=== PATIENT | female | born 1990 | race African-American/Black ===

== ENCOUNTER 2016-10-27 06:55 | Outpatient (CLI) | payer OTHER, SELFPAY ==
[~2016-10-27] VITALS: Ht 149.9 cm; Wt 58.0 kg
[2016-10-27 07:33] VITALS: BP 133/65
[2016-10-27 08:57] VITALS: BP 114/58
[2016-10-27 09:28] LABS: MEAN CORPUSCULAR HGB CONC 32.1 g/dl (32.0-36.5); MEAN CORPUSCULAR VOLUME 77.8 fl (80.0-96.0); RED CELL DISTRIBUTION WIDTH 14.3 % (11.5-14.5); WHITE BLOOD COUNT 9.7 K/mm3 (4.0-10.0)
[2016-10-27 09:56] LABS: ALBUMIN 3.2 GM/DL (3.2-5.2); ALBUMIN/GLOBULIN RATIO 0.82 (1.00-1.93); ALKALINE PHOSPHATASE 53 U/L (45-117); ALT/SGPT 13 U/L (12-78); AMYLASE 153 U/L (25-115); ANION GAP 11 MEQ/L (8-16); AST/SGOT 14 U/L (15-37); BILIRUBIN,TOTAL 0.3 MG/DL (0.2-1.0); BLOOD UREA NITROGEN 9 MG/DL (7-18); CARBON DIOXIDE LEVEL 22 MEQ/L (21-32); CHLORIDE LEVEL 106 MEQ/L (98-107); CREATININE FOR GFR 0.46 MG/DL (0.55-1.02); GLOMERULAR FILTRATION RATE > 60.0 (>60); GLUCOSE, FASTING 108 MG/DL (70-105); POTASSIUM SERUM 3.5 MEQ/L (3.5-5.1); SODIUM LEVEL 139 MEQ/L (136-145); TOTAL PROTEIN 7.1 GM/DL (6.4-8.2)
[2016-10-27 10:37] LABS: CALCIUM OXALATE CRYSTALS SMALL
== END 2016-10-27 09:40 | disposition left against medical advice (07) ==
LOC: EDBD 06:55 → M LDO 06:55
PROVIDERS: ATTEND Student in an Organized Health Care Education/Training Program
DX: O99.89 Other specified diseases and conditions complicating pregnancy, childbirth and the puerperium (principal); Z3A.00 Weeks of gestation of pregnancy not specified; R10.9 Unspecified abdominal pain

== ENCOUNTER → 2016-11-11 | Outpatient (CLI) | payer OTHER ==
--- NOTE | 2016-11-11 16:00 | REP ---
ULTRASOUND RIGHT BREAST: Real-time sonographic evaluation of the right breast is performed. Reportedly there is a palpable abnormality in the region of 9 to 10-o'clock. Dense fibroglandular tissue is noted. There is a hypoechoic nodule seen which measures 9 x 7 x 8 mm. This may represent a fibroadenoma. There is internal blood flow with duplex Doppler evaluation. IMPRESSION: Solid nodule 10-o'clock in the region of the palpable abnormality with a maximum diameter of 9 mm. This probably represents a fibroadenoma. It is probably benign. Recommend followup ultrasound in 6 months. ACR 3 probably benign. Signed by Sai Oviedo MD 11/11/2016 05:24 P
== END ==
LOC: M RAD 12:15
PROVIDERS: ATTEND Obstetrics & Gynecology
DX: N63 Unspecified lump in breast (principal)

== ENCOUNTER 2017-02-20 04:16 | Outpatient (CLI) | payer OTHER | END 2017-02-20 05:40 | disposition home or self-care (01) | LOC: M LDO 04:16 | DX: O36.8130 Decreased fetal movements, third trimester, not applicable or unspecified (principal); Z3A.37 37 weeks gestation of pregnancy | CPT/HCPCS: 76815 ==

== ENCOUNTER 2017-03-02 23:30 | Inpatient (IN) | payer OTHER ==
[2017-03-03] MEDS ORDERED: OXYTOCIN 30 UNITS IN 0.9% NaCl 500ML IV BAG (J2590) As Ordered (01:26)
[2017-03-03] MEDS: LACTATED RINGER'S 1000 ML IV (01:55)
[2017-03-03 02:16] LABS: AMPHETAMINES URINE REFLEX NEGATIVE (NEGATIVE); BARBITURATES URINE REFLEX NEGATIVE (NEGATIVE); BENZODIAZEPINES URINE REFLEX NEGATIVE (NEGATIVE); CANNABINOIDS URINE REFLEX NEGATIVE (NEGATIVE); COCAINE METABOLITE URINE REFLE NEGATIVE (NEGATIVE); METHADONE URINE REFLEX NEGATIVE (NEGATIVE); OPIATES URINE REFLEX NEGATIVE (NEGATIVE); PHENCYCLIDINE URINE REFLEX NEGATIVE (NEGATIVE)
[2017-03-03 02:32] LABS: HEMATOCRIT 38.8 % (36.0-47.0); HEMOGLOBIN 12.4 g/dl (12.0-16.0); MEAN CORPUSCULAR HEMOGLOBIN 24.4 pg (27.0-33.0); MEAN CORPUSCULAR VOLUME 76.4 fl (80.0-96.0); PLATELET COUNT, AUTOMATED 294 10^3/uL (150-450); RED BLOOD COUNT 5.08 10^6/uL (4.00-5.40); RED CELL DISTRIBUTION WIDTH 14.7 % (11.5-14.5); WHITE BLOOD COUNT 8.5 10^3/uL (4.0-10.0)
[2017-03-03] MEDS ORDERED: DIBUCAINE 1% OINTMENT 30GM TOP (02:45)
[2017-03-03] MEDS ORDERED: DOCUSATE SODIUM 100 MG CAP PO (02:45)
[2017-03-03] MEDS: IBUPROFEN 800 MG TAB PO (03:20)
[2017-03-03] MEDS: OXYTOCIN DRIP 30 UNITS in APPROPRIATE DILUENT 1 EA IV (04:15)
[2017-03-03] MEDS: LIDOCAINE 1% MDV INJ 50 ML VIAL INFIL (04:15)
[2017-03-03] MEDS: LR 1,000 ML IV (04:15)
[2017-03-03] MEDS: RHOGAM 300 MCG (1500 IU) INJ (J2790) IM (08:00)
[2017-03-03] MEDS: MEASLES,MUMPS,RUBELLA VACCINE INJ (MMR-II) (90707) SC (08:00)
[2017-03-03] MEDS: PRENATAL VITAMINS CHEWABLE TABLET PO (09:10)
[2017-03-03] MEDS: ACETAMINOPHEN 500 MG TAB PO (22:45)
[2017-03-04] MEDS: IBUPROFEN 800 MG TAB PO (07:56)
[2017-03-04] MEDS: PRENATAL VITAMINS CHEWABLE TABLET PO (07:56)
== END 2017-03-04 11:00 | disposition home or self-care (01) | DRG 775 ==
LOC: M LDO 23:30 → M LDI 03-03 01:08 → M OBS 03-03 04:05
PROVIDERS: Obstetrics & Gynecology
PROC: 10E0XZZ Delivery of Products of Conception, External Approach (ICD-10-PCS; principal; 2017-03-03)
PROC: 0HQ9XZZ Repair Perineum Skin, External Approach (ICD-10-PCS; 2017-03-03)
PROC: 10907ZC Drainage of Amniotic Fluid, Therapeutic from Products of Conception, Via Natural or Artificial Opening (ICD-10-PCS; 2017-03-03)
DX: O62.3 Precipitate labor (principal); O99.02 Anemia complicating childbirth; D64.9 Anemia, unspecified; Z3A.38 38 weeks gestation of pregnancy; O70.0 First degree perineal laceration during delivery; O32.6XX0 Maternal care for compound presentation, not applicable or unspecified; Z37.0 Single live birth